=== PATIENT | female | born 1970 | race Caucasian/White ===

== ENCOUNTER → 2017-12-18 | Outpatient (CLI) | payer OTHER ==
[~2017-12-18] MED LIST: KETO10TA2 PO
== END | disposition home or self-care (01) ==
LOC: SONOGRAMA 10:34
DX: N94.89 Other specified conditions associated with female genital organs and menstrual cycle (principal)

== ENCOUNTER → 2018-01-10 | Day surgery (SDC) | payer OTHER | END | disposition home or self-care (01) | LOC: ADM 01-05 07:15 → CIR.AMB 05:48 → ADM 07:15 → ER PPHC 07:15 → CIR.AMB 07:15 | DX: N84.0 Polyp of corpus uteri (principal); D25.1 Intramural leiomyoma of uterus ==